=== PATIENT | male | born 1985 | race Caucasian/White ===

== ENCOUNTER 2021-12-08 07:30 | Outpatient (CLI) | payer SELFPAY ==
--- NOTE | 2021-12-07 15:20 | VAS_PTH ---
PATIENT: ELVIS ALEXANDER V LOC: [facility] U#:[id number] AGE/SX: 36/M ROOM: RE12/08/[address]: Dr. Warren Purvis MD : [id number] BED: DIS: 12/08/2021 SPEC #: [id number] RECD: 12/08/21 07:29 STATUS: ALDAIR VIK #: [id number] ABNER: 12/07/21 15:[address]: Warren Purvis DEPT: SURGICAL PATHOLOGY RECD BY: Saira Baker Tissues: A - Vas deferens, NOS B - Vas deferens, NOS Procedures: Surgery Specimen Level II HEADER OPERATION: Bilateral partial vasectomy PRE-OP DIAGNOSIS: Sterilization TISSUE SUBMITTED: A ? Right vas deferens, B ? Left vas deferens MICROSCOPIC DIAGNOSIS A. Right vas deferens, partial vasectomy: Completely transected segment of vas deferens, no pathologic diagnosis. B. Left vas deferens, partial vasectomy: Completely transected segment of vas deferens, no pathologic diagnosis. JOAN:robert 12/09/2021 MICROSCOPIC DESCRIPTION Slides are reviewed. GROSS DESCRIPTION A - Received is one container designated right vas deferens. The specimen consists of a tubular segment of das soft tissue measuring 1.5 cm in length and 0.2 cm in diameter. The specimen is sectioned and submitted entirely in one cassette. B - Received is one container designated left vas deferens. The specimen consists of a tubular segment of das soft tissue measuring 1 cm in length and 0.2 cm in diameter. The specimen is sectioned and submitted entirely in one cassette. / JOAN:robert 12/08/2021 TC:4 CPT: 97525 x2
== END 2021-12-08 23:59 | disposition home or self-care (01) ==
LOC: LABSPEC 08:01
PROVIDERS: Visit Provider Surgery
DX: Z30.2 Encounter for sterilization (principal)
CPT/HCPCS: 88302